=== PATIENT | female | born 1950 | race Caucasian/White ===

== ENCOUNTER → 2020-03-10 | Outpatient (CLI) | payer MEDICARE, OTHER ==
[~2020-03-10] MED LIST: ASA81BEC PO; CARVEDILOL12.5 MG PO; CLINDAMYCIN HC300 MG PO; HYDROCODON-ACE1 EAC7 PO; LORAZEPAM 0.50.5 MG PO; LOSARTAN POTAS100 MG PO; METFORMIN HCL500 MG PO; MUCINEX600 MG PO; MULTIVITAMIN W1 EAC2 PO; OMEPRAZOLE 20 M20 M1 PO; OS-CAL 500+D31 EAC1 PO; OSTEO BI-FLEX1 EAC1 PO; OXYCODONE HCL 55 MG PO; PROLOPRIM100 MG PO; PSEUDOEPHEDRINE30 MG PO; SUPER B COMPLE1 EAC2 PO; TAMSULOSIN HCL0.4 MG PO; XARELTO10 MG PO
== END ==
LOC: M.MRI 16:13
PROVIDERS: ATTEND Orthopaedic Surgery
DX: M17.12 Unilateral primary osteoarthritis, left knee (principal)

== ENCOUNTER → 2020-03-31 | Outpatient (CLI) | payer MEDICARE, OTHER ==
[~2020-03-31] MED LIST changes: -OXYCODONE HCL 55 MG PO; -XARELTO10 MG PO
[2020-03-31 14:12] LABS: URINE BILIRUBIN NEGATIVE (Negative); URINE BLOOD NEGATIVE (Negative); URINE CLARITY CLEAR; URINE COLOR YELLOW; URINE GLUCOSE-RANDOM NEGATIVE (Negative); URINE KETONES NEGATIVE (Negative); URINE LEUKOCYTES-REFLEX NEGATIVE (Negative); URINE NITRITE-REFLEX NEGATIVE (Negative); URINE PROTEIN NEGATIVE (Negative); URINE SPECIFIC GRAVITY <= 1.005 (1.005-1.030); URINE UROBILINOGEN 0.2 E.U./dl (0.2-1.0)
[2020-03-31 14:24] LABS: PROTIME 10.4 Seconds (9.20-11.50)
--- NOTE | 2020-03-31 14:53 | EKG ---
[place] [address] ELECTROCARDIOGRAM REPORT Name: VERONIKASLAVA E Room: [facility]#: [id number] Admission: 03/31/20 Attend Phys: Lion Urbano, Discharge: Date of : 46 Date of Service: 03/31/20 1425 Report #: [id number] THIS REPORT FOR: //name// [facility] Test Date: 2020-03-31 Test Time: 14:25:32 Pat Name: SLAVA BANDA Department: Room: Gender: F Final Inspector And Tester: : 1950 Requested By: Lion Urbano Order Number: [id number] Reading MD: Jose Duvall Measurements Intervals Hessel Rate: 89 P: 63 UT: 168 QRS: 33 QRSD: 77 T: 52 QT: 342 QTc: 417 Interpretive Statements Sinus rhythm No previous ECG available for comparison Electronically Signed On 03-31-2020 14:53:51 [employer] by Jose Duvall [email or web address] <ELECTRONICALLY SIGNED> By: Jose Duvall MD, [facility] 03/31/20 1453 142 142 Jose Duvall MD, FACC /EPI
== END ==
LOC: M.LAB 11:48
PROVIDERS: ATTEND Orthopaedic Surgery
DX: Z01.812 Encounter for preprocedural laboratory examination (principal); Z20.828 Contact with and (suspected) exposure to other viral communicable diseases; M17.11 Unilateral primary osteoarthritis, right knee; I49.9 Cardiac arrhythmia, unspecified

== ENCOUNTER 2020-04-06 10:01 | Inpatient (IN) | payer MEDICARE, OTHER ==
[~2020-04-06] VITALS: Ht 165.1 cm; Wt 78.0 kg
--- NOTE | ~2020-04-06 | OP ---
[address] [address] OPERATIVE REPORT Name: SLAVA BANDA Room: [address] IN [facility]#: [id number] Admission: 04/06/20 Attend Phys: Bashir Yanes Discharge: Date of : 46 Report #: [id number] THIS REPORT FOR: //name// cc: LESLY RUIZ MD Physician not on staff ~ CC: LESLY RUIZ Physician staff Jose Mac DATE OF SERVICE: 04/06/2020 PREOPERATIVE DIAGNOSIS: Left knee osteoarthritis. POSTOPERATIVE DIAGNOSIS: Left knee osteoarthritis. PROCEDURE: Left total knee arthroplasty. SURGEON: Lion Urbano II, DO STUDENT ASSISTANCE COUNSELOR: GLORIA Wiggins. ANESTHESIA: General endotracheal. ESTIMATED BLOOD LOSS: 50 mL. ANTIBIOTICS: Ancef preoperatively. DRAINS: Medium Hemovac. COMPLICATIONS: None. CONDITION OF THE PATIENT: Stable to recovery room. IMPLANTS: Listed in operative record and progress note. BRIEF HISTORY: The patient was seen in the preoperative area. Preoperative H and P was performed. Site was marked, questions were answered. Risks and benefits were discussed with the patient in detail about the surgery. The patient wished to proceed, assuming all risks. DESCRIPTION OF PROCEDURE: The patient was taken to the operative suite and placed supine on the operating table, given appropriate anesthesia. A well-padded tourniquet was applied to upper thigh, which was inflated to 300 mmHg after gravity exsanguination. The operative knee was sterilely prepped and draped. Surgery began by midline incision and this was carried down to the subcutaneous tissues. A medial parapatellar [place] [address] OPERATIVE REPORT Name: SLAVA BANDA Room: [address] IN .R.#: [id number] Admission: 04/06/20 Attend Phys: Bashir Yanes Discharge: Date of : 46 Report #: [id number] carried down to bone. Patella was then everted and excess soft tissue was removed from around the femur. Femoral cutting block was then applied, checked with drop von for rotational alignment, pinned in appropriate position and appropriate cuts were made. A 4-in-1 cutting block was then applied, checked for rotational alignment, pinned in appropriate position and appropriate cuts were made. The tibia was then exposed. Excess meniscus was removed. Retractor was placed on collateral ligaments. The tibial cutting block was then applied, pinned in appropriate position, checked with drop von for rotational alignment and slope and appropriate cut was made. Tibia bone was removed. Tibial base plate was then applied, checked for rotational alignment with the drop von and pinned in appropriate position. The femur was then applied and box cut was reamed. This was trialed with appropriate spacer, which showed excellent fit and fill and excellent stability of the knee through all range of motion. The patella was reamed in appropriate fashion and sized to appropriate size. Three peg holes were drilled and it was then trialed and showed excellent flexion, extension, excellent tracking of the patella within the groove. These trials were removed. The tibia was punched in appropriate fashion. Bone ends were cleansed with Pulsavac irrigation and cement was mixed and applied to final implants. These were malleted into position and held the knee in extension and compressed to allow cement to cure. After it cured, excess was removed utilizing a Athena and osteotome. Wound was then copiously irrigated and the final spacer was then malleted into position. Tourniquet was deflated. Hemostasis was obtained with electrocautery. Pain cocktail was injected. PRP gel sprayed to internal aspects of the knee. Medium Hemovac drain was applied. Capsule was closed with 2 FiberWire and 1 Vicryl in [id number] fashion. Skin was closed with 2-0 Vicryl and running 3-0 Monocryl. Dermabond and sterile dressing applied. Miles wrap and PolarCare applied. The patient transported to recovery room in stable condition. Counts were correct throughout the procedure. By: 47 Rguerita Urbano II DO /nt
[2020-04-06 11:40] VITALS: BP 135/91
[2020-04-06 17:54] VITALS: BP 117/67
[2020-04-06 22:45] VITALS: BP 117/61
[2020-04-07 01:04] VITALS: BP 141/75
[2020-04-07 04:55] LABS: HEMATOCRIT 32.1 % (37.0-47.0); HEMOGLOBIN 10.6 gm/dL (12.0-15.0)
[2020-04-07 07:20] VITALS: BP 138/69
--- NOTE | 2020-04-07 08:25 | NUR ---
PATIENT HAS SLEPT OFF AND ON DURING THE NIGHT. VSS ON 3L 02. PAIN WELL CONTROLLED. MEDICATIONS GIVEN ORDERED AND CHARTED. PATIENT UP WITH ASSIST X 1 TO THE BSC. DRESSING TO LEFT KNEE IS C/D/I, AND SUMIT RODRIGUEZ, ABELARDO'S AND POLAR CARE IN PLACE. IV IN LEFT WRIST-SL. IV ABT GIVEN WITHOUT ANY ADVERSE SIDE EFFECTS NOTED. HEMOVAC TO LEFT KNEE WITH MODERATE AMOUNT OF SANGUINOUS DRAINAGE. FALL PRECAUTIONS IN PLACE AND HOURLY ROUNDS MADE. WILL CONTINUE WITH PLAN OF CARE AND NURSING TO MONITOR.
[2020-04-07 09:46] VITALS: BP 138/69
[2020-04-07 09:48] VITALS: BP 138/69
--- NOTE | 2020-04-07 11:13 | NUR ---
Pt is A&O. Resides at home with her . Normally active and independent. Pt states that she has been using a cane PRN d/t balance issues. No hx of HH or SNF. Pt states that she will dc to home today and wants outpt PT arranged through [facility], CM contacted [facility] and confirmed their ability to accept, CM to fax referral at ia p:[phone] f:[phone].
[2020-04-07] MEDS ORDERED: XARELTO10 MG PO (12:09)
[2020-04-07] MEDS ORDERED: OXYCODONE HCL 55 MG PO (12:09)
[2020-04-07 12:25] VITALS: BP 138/69
--- NOTE | 2020-04-07 12:43 | NUR ---
DIANE CALLED IN PRESCRIPTION FOR [facility] IN [place]. COPAY IS $192. INFORMED PT.AND SHE SAID THEY CAN AFFORD THIS. PT.WANTS TO DO OUTPT.THERAPY AT [facility]. DIANE NOTIFIED [facility]/ OFFICE. SHE WILL CALL ORDER TO THEM. CM WILL FAX REFERRAL INFORMAITION TO [phone]. PLANS TO DISCHARGE HOME THIS AFTERNOON AFTER LUNCH. AT BEDSIDE.
--- NOTE | 2020-04-07 13:11 | NUR ---
RECIEVED O.T. ORDERS. WILL DEFER TO P.T. AT THIS TIME. PLEASE ORDER FURTHER O.T. SERVICES IF NEEDED.
--- NOTE | 2020-04-07 14:12 | NUR ---
PT AO X4 SITTING IN CHAIR THIS AM, SHE HAD PHYSICAL THERAPY AND THEN REQUESTED PAIN MEDS. TORODAOL ADMINISTERED WITH GOOD RESULTS. OK TO DISCHARGE FROM PT AND DR, DISCHARGE INSTRUCTIONS GIVEN TO PT AND , ALL QUESTIONS ANSWERED, IV REMOVED INTACT, PT WAS TAKEN WITH BELONGINGS TO PRIVATE VEHICLE BY [employer].
== END 2020-04-07 14:14 | disposition home or self-care (01) | DRG 470 ==
LOC: M.TBA 10:01 → M.3W 10:01 → M.PRE 15:56 → M.3W 17:48
PROVIDERS: Orthopaedic Surgery; ADMIT Internal Medicine; ATTEND Internal Medicine
PROC: 0SRD0J9 Replacement of Left Knee Joint with Synthetic Substitute, Cemented, Open Approach (ICD-10-PCS; principal; 2020-04-06)
DX: M17.0 Bilateral primary osteoarthritis of knee (principal); K21.9 Gastro-esophageal reflux disease without esophagitis; F41.9 Anxiety disorder, unspecified; I10 Essential (primary) hypertension; M85.80 Other specified disorders of bone density and structure, unspecified site; E11.9 Type 2 diabetes mellitus without complications; Z88.1 Allergy status to other antibiotic agents; Z91.041 Radiographic dye allergy status; Z88.0 Allergy status to penicillin; Z91.09 Other allergy status, other than to drugs and biological substances; Z79.82 Long term (current) use of aspirin; Z79.84 Long term (current) use of oral hypoglycemic drugs; Z79.899 Other long term (current) drug therapy; Z90.710 Acquired absence of both cervix and uterus; Z85.3 Personal history of malignant neoplasm of breast; Z92.21 Personal history of antineoplastic chemotherapy; Z92.3 Personal history of irradiation